=== PATIENT | female | born 1935 | race Caucasian/White ===

== ENCOUNTER 2016-09-13 18:34 | Inpatient (IN) | payer OTHER, MEDICAID ==
[~2016-09-13] VITALS: Ht 162.6 cm; Wt 60.4 kg
[~2016-09-13 18:34] MED LIST: ALEN10TA22 PO; ALL300T PO; ASPI81TA13 PO; BACL10TA PO; FURO20TA PO; GABA-494 PO; HYDRTAB57 PO; LEVO50TA7 PO; LOP2C PO; LOSA25TA9 PO
[2016-09-13 19:13] LABS: Basophils # (auto) 0 uL; Basophils % (auto) 0.3 % (0.0-2.0); DEFINITIVE VIEW TRANSMISSION; Eosinophils # (auto) 0.1 uL; Eosinophils % (auto) 0.8 % (0.0-7.0); Hematocrit 34.7 % (36.0-46.0); Hemoglobin 10.8 g/dL (12.2-16.2); Lymphocytes % (auto) 9.3 % (10.0-50.0); Mean Corpuscular Hemoglobin 24.6 pg (28.0-32.0); Mean Corpuscular Volume 79.4 fL (80.0-100.0); Mean Platelet Volume 6.9 fL (7.4-10.4); Monocytes # (auto) 0.5 uL; Neutrophils # (auto) 8.9 uL; Neutrophils % (auto) 84.6 % (37.0-80.0); Platelet Count (auto) 436 10^3/uL (140-450); Red Cell Distribution Width 17.4 % (11.6-16.0); White Blood Cell 10.5 10^3/uL (4.4-10.8)
[2016-09-13 19:29] LABS: Albumin 2.7 g/dL (3.4-5.0); BUN/Creatinine Ratio 33.3; Calcium 8.2 mg/dL (8.5-10.1); Potassium 4.6 mmol/L (3.5-5.1)
[2016-09-13 19:32] LABS: Bilirubin, Total 0.3 mg/dL (0.2-1.0); Total Protein 6.2 g/dL (6.4-8.2)
[2016-09-13] MEDS ORDERED: ONDANSETRON HCL 4 MG/2 ML VIAL IV ONE (21:15)
[2016-09-13] MEDS ORDERED: HYDROmorphone HCL 2 MG/ML VL IV ONE (21:15)
[2016-09-13] MEDS ORDERED: SODIUM CHLORIDE 0.9% 1,000 ML IV ONE (21:15)
[2016-09-14] MEDS ORDERED: ONDANSETRON HCL 4 MG/2 ML VIAL ONE (00:07)
[2016-09-14] MEDS ORDERED: ONDANSETRON HCL 4 MG/2 ML VIAL IV ONE (00:15)
[2016-09-14] MEDS ORDERED: HYDROmorphone HCL 2 MG/ML VL IV ONE (00:30)
[2016-09-14] MEDS ORDERED: LACTULOSE 20Gm/30ML SOLN PO PRN (01:15)
[2016-09-14] MEDS ORDERED: SODIUM CHLORIDE 0.9% 1,000 ML IV ONE (01:15)
[2016-09-14] MEDS ORDERED: cefTRIAXone 1GM/50ML D5W 50 ML IV ONE (01:15)
[2016-09-14 01:53] LABS: INR 1.02 (0.9-1.15); Partial Thromboplastin Time 25.9 sec (22.64-33.71); Prothrombin Time 10.5 sec (9.37-12.3)
[2016-09-14 02:30] VITALS: BP 108/59
[2016-09-14] MEDS: ONDANSETRON HCL 4 MG/2 ML VIAL IV PRN ×4 (03:55→16:31)
[2016-09-14] MEDS: HYDROmorphone HCL 2 MG/ML VL IV PRN ×5 (03:56→20:58)
[2016-09-14 05:00] VITALS: BP 96/41
[2016-09-14] MEDS ORDERED: INFLUENZA QUAD 2016-2017 0.5 ML SYRG IM ONE (06:00)
[2016-09-14] MEDS: LEVOTHYROXINE SODIUM 25 MCG TAB PO SCH (06:30)
[2016-09-14] MEDS: cefTRIAXone 1GM/50ML D5W 50 ML IV SCH (08:28)
[2016-09-14 09:00] VITALS: BP 117/58
[2016-09-14] MEDS: LOSARTAN POTASSIUM 25 MG TAB PO SCH (10:00)
[2016-09-14] MEDS: PANTOPRAZOLE SODIUM 40 MG/10 ML VIAL IV SCH (11:07)
[2016-09-14] MEDS: GABAPENTIN 100 MG CAP PO SCH (11:07)
[2016-09-14] MEDS: ALLOPURINOL 300 MG TAB PO SCH (11:07)
[2016-09-14 12:32] VITALS: BP 110/47
[2016-09-14 14:41] LABS: Urine Bilirubin Negative (Negative); Urine Blood Negative /uL (Negative); Urine Color Yellow (Yellow); Urine Glucose Normal (Normal); Urine Ketone Negative (Negative); Urine Mucus FEW (None Seen); Urine RBC 2 /hpf (0 - 4); Urine Squamous Epithelial Cell MOD /hpf (<5); Urine Urobilinogen Normal (Negative)
[2016-09-14 14:44] LABS: Urine Nitrite POSITIVE (Negative)
[2016-09-14 16:39] VITALS: BP 96/40
[2016-09-14] MEDS: D5W/SOD CHLO 0.9% 1,000 ML IV SCH (16:40)
[2016-09-14 17:35] LABS: Basophils # (auto) 0 uL; Basophils % (auto) 0.5 % (0.0-2.0); DEFINITIVE VIEW TRANSMISSION; Eosinophils # (auto) 0.2 uL; Eosinophils % (auto) 2.1 % (0.0-7.0); Hematocrit 32.7 % (36.0-46.0); Lymphocytes % (auto) 11.9 % (10.0-50.0); Mean Corpuscular Hemoglobin 24.8 pg (28.0-32.0); Mean Corpuscular Hgb Conc. 30.7 g/dL (32.0-36.0); Mean Corpuscular Volume 80.9 fL (80.0-100.0); Mean Platelet Volume 6.7 fL (7.4-10.4); Monocytes # (auto) 1.2 uL; Monocytes % (auto) 14.6 % (0.0-12.0); Neutrophils % (auto) 70.9 % (37.0-80.0); Platelet Count (auto) 403 10^3/uL (140-450); Red Cell Distribution Width 17.6 % (11.6-16.0); White Blood Cell 8.5 10^3/uL (4.4-10.8)
[2016-09-14 18:04] LABS: BUN/Creatinine Ratio 37.6; Calcium 7.5 mg/dL (8.5-10.1); Potassium 5.1 mmol/L (3.5-5.1)
[2016-09-14] MEDS: AMIODARONE HCL 900 MG in DEXTROSE 500 ML IV SCH (18:55)
[2016-09-14 20:00] VITALS: BP 100/47
[2016-09-14] MEDS: ENOXAPARIN SOD 100 MG/1 ML SYRINGE SC SCH (21:00)
[2016-09-15] VITALS (7 sets, daily range): BP systolic 91–116; BP diastolic 41–59
[2016-09-15] MEDS ORDERED: LIDOCAINE 1% HCL (LOCAL ANESTH.) INJ 20ML MDV ID ONE
[2016-09-15] MEDS: D5W/SOD CHLO 0.9% 1,000 ML IV SCH ×3 (01:03→22:18)
[2016-09-15] MEDS: ONDANSETRON HCL 4 MG/2 ML VIAL IV PRN ×3 (01:19→20:20)
[2016-09-15] MEDS: HYDROmorphone HCL 2 MG/ML VL IV PRN ×5 (01:21→20:20)
[2016-09-15] MEDS: metroNIDAZOLE 500MG/100ML 100 ML IV SCH ×4 (01:30→17:46)
[2016-09-15] MEDS ORDERED: MAGNESIUM SULFATE 1GM/100ML 200 ML IV ONE (03:45)
[2016-09-15] MEDS: MAGNESIUM SULFATE 1GM/100ML 100 ML IV SCH (04:00)
[2016-09-15 05:14] LABS: Basophils # (auto) 0 uL; Basophils % (auto) 0.2 % (0.0-2.0); DEFINITIVE VIEW TRANSMISSION; Eosinophils # (auto) 0.3 uL; Eosinophils % (auto) 3.4 % (0.0-7.0); Hematocrit 26.7 % (36.0-46.0); Hemoglobin 8.5 g/dL (12.2-16.2); Lymphocytes # (auto) 1.1 uL; Lymphocytes % (auto) 11.3 % (10.0-50.0); Mean Corpuscular Hemoglobin 25.1 pg (28.0-32.0); Mean Corpuscular Hgb Conc. 31.7 g/dL (32.0-36.0); Mean Corpuscular Volume 79.1 fL (80.0-100.0); Mean Platelet Volume 7.2 fL (7.4-10.4); Monocytes # (auto) 1.5 uL; Monocytes % (auto) 15.1 % (0.0-12.0); Neutrophils # (auto) 6.9 uL; Platelet Count (auto) 372 10^3/uL (140-450); White Blood Cell 9.9 10^3/uL (4.4-10.8)
[2016-09-15 05:32] LABS: Albumin 1.9 g/dL (3.4-5.0); BUN/Creatinine Ratio 40.4; Bilirubin, Total 0.2 mg/dL (0.2-1.0); Calcium 7.2 mg/dL (8.5-10.1); Potassium 4.7 mmol/L (3.5-5.1); Total Protein 4.8 g/dL (6.4-8.2)
[2016-09-15] MEDS: LEVOTHYROXINE SODIUM 25 MCG TAB PO SCH (07:27)
[2016-09-15] MEDS: AMIODARONE HCL 900 MG in DEXTROSE 500 ML IV SCH (09:10)
[2016-09-15] MEDS: ENOXAPARIN SOD 100 MG/1 ML SYRINGE SC SCH (09:10)
[2016-09-15] MEDS: cefTRIAXone 1GM/50ML D5W 50 ML IV SCH (09:10)
[2016-09-15] MEDS: SODIUM CHLOR 0.9% PF (SALINE LOCK) 10ML VIAL IV SCH ×2 (09:37→22:18)
[2016-09-15] MEDS: LOSARTAN POTASSIUM 25 MG TAB PO SCH (09:37)
[2016-09-15] MEDS: ALLOPURINOL 300 MG TAB PO SCH (09:50)
[2016-09-15] MEDS: GABAPENTIN 100 MG CAP PO SCH ×2 (09:50→22:18)
[2016-09-15] MEDS: PANTOPRAZOLE SODIUM 40 MG/10 ML VIAL IV SCH (09:50)
[2016-09-15] MEDS: AMIODARONE HCL 200 MG TAB PO SCH ×2 (13:59→22:16)
[2016-09-15] MEDS: ALPRAZolam 0.25 MG TAB PO SCH ×2 (13:59→22:16)
[2016-09-15] MEDS ORDERED: WARFARIN SODIUM 5 MG TAB PO ONE (17:00)
[2016-09-15] MEDS ORDERED: ENOXAPARIN SOD 100 MG/1 ML SYRINGE SC SCH (18:00)
[2016-09-15] MEDS: ENOXAPARIN SOD 40 MG/0.4 ML SYRINGE SC SCH (18:28)
[2016-09-15] MEDS: MUPIROCIN 2% OINT 22GM TOP SCH (22:17)
[2016-09-16] VITALS (18 sets, daily range): BP systolic 92–119; BP diastolic 40–56
[2016-09-16] MEDS: metroNIDAZOLE 500MG/100ML 100 ML IV SCH ×3 (02:44→17:27)
[2016-09-16] MEDS: HYDROmorphone HCL 2 MG/ML VL IV PRN ×3 (06:38→22:37)
[2016-09-16] MEDS: ALPRAZolam 0.25 MG TAB PO SCH ×3 (06:38→22:38)
[2016-09-16] MEDS: LEVOTHYROXINE SODIUM 25 MCG TAB PO SCH (06:38)
[2016-09-16] MEDS: ENOXAPARIN SOD 40 MG/0.4 ML SYRINGE SC SCH ×2 (06:39→17:30)
[2016-09-16] MEDS: ONDANSETRON HCL 4 MG/2 ML VIAL IV PRN ×2 (06:57→22:37)
[2016-09-16 07:29] LABS: Basophils # (auto) 0 uL; Basophils % (auto) 0.1 % (0.0-2.0); DEFINITIVE VIEW TRANSMISSION; Eosinophils # (auto) 0.3 uL; Hematocrit 31.3 % (36.0-46.0); Hemoglobin 9.9 g/dL (12.2-16.2); Mean Corpuscular Hemoglobin 25.8 pg (28.0-32.0); Mean Corpuscular Hgb Conc. 31.7 g/dL (32.0-36.0); Mean Corpuscular Volume 81.4 fL (80.0-100.0); Monocytes # (auto) 0.9 uL; Monocytes % (auto) 8.8 % (0.0-12.0); Neutrophils # (auto) 8.5 uL; Neutrophils % (auto) 79.1 % (37.0-80.0); Platelet Count (auto) 285 10^3/uL (140-450); Red Cell Distribution Width 17.9 % (11.6-16.0); White Blood Cell 10.8 10^3/uL (4.4-10.8)
[2016-09-16 07:45] LABS: Partial Thromboplastin Time 30.3 sec (22.64-33.71); Prothrombin Time 12.2 sec (9.37-12.3)
[2016-09-16] MEDS: D5W/SOD CHLO 0.9% 1,000 ML IV SCH (07:45)
[2016-09-16 07:48] LABS: INR 1.18 (0.9-1.15)
[2016-09-16 08:07] LABS: Albumin 1.8 g/dL (3.4-5.0); BUN/Creatinine Ratio 40.3; Bilirubin, Total 0.2 mg/dL (0.2-1.0); Calcium 7.1 mg/dL (8.5-10.1); Potassium 3.9 mmol/L (3.5-5.1); Total Protein 4.5 g/dL (6.4-8.2)
[2016-09-16] MEDS: cefTRIAXone 1GM/50ML D5W 50 ML IV SCH (09:10)
[2016-09-16] MEDS: MUPIROCIN 2% OINT 22GM TOP SCH ×2 (10:52→22:38)
[2016-09-16] MEDS: SODIUM CHLOR 0.9% PF (SALINE LOCK) 10ML VIAL IV SCH ×2 (10:52→22:37)
[2016-09-16] MEDS: PANTOPRAZOLE SODIUM 40 MG/10 ML VIAL IV SCH (10:52)
[2016-09-16] MEDS: AMIODARONE HCL 200 MG TAB PO SCH ×2 (10:52→22:38)
[2016-09-16] MEDS: ALLOPURINOL 300 MG TAB PO SCH (10:53)
[2016-09-16] MEDS: GABAPENTIN 100 MG CAP PO SCH ×2 (10:53→22:38)
[2016-09-16] MEDS ORDERED: WARFARIN SODIUM 5 MG TAB PO ONE (17:00)
[2016-09-17] VITALS: BP 120/52
[2016-09-17] MEDS: metroNIDAZOLE 500MG/100ML 100 ML IV SCH ×2 (01:12→10:20)
[2016-09-17] MEDS: HYDROmorphone HCL 2 MG/ML VL IV PRN ×3 (01:17→10:36)
[2016-09-17] MEDS: ONDANSETRON HCL 4 MG/2 ML VIAL IV PRN ×2 (01:18→18:37)
[2016-09-17 05:00] VITALS: BP 118/56
[2016-09-17] MEDS: ENOXAPARIN SOD 40 MG/0.4 ML SYRINGE SC SCH (05:33)
[2016-09-17] MEDS: ALPRAZolam 0.25 MG TAB PO SCH ×3 (05:34→21:43)
[2016-09-17] MEDS: LEVOTHYROXINE SODIUM 25 MCG TAB PO SCH (05:34)
[2016-09-17 06:00] VITALS: BP 116/55
[2016-09-17 06:35] LABS: Partial Thromboplastin Time 35.2 sec (22.64-33.71)
[2016-09-17 06:43] LABS: INR 1.63 (0.9-1.15); Prothrombin Time 16.8 sec (9.37-12.3)
[2016-09-17] MEDS: cefTRIAXone 1GM/50ML D5W 50 ML IV SCH (09:13)
[2016-09-17] MEDS: PANTOPRAZOLE SODIUM 40 MG/10 ML VIAL IV SCH (10:18)
[2016-09-17] MEDS: GABAPENTIN 100 MG CAP PO SCH ×2 (10:18→21:43)
[2016-09-17] MEDS: AMIODARONE HCL 200 MG TAB PO SCH (10:19)
[2016-09-17] MEDS: ALLOPURINOL 300 MG TAB PO SCH (10:19)
[2016-09-17] MEDS: SODIUM CHLOR 0.9% PF (SALINE LOCK) 10ML VIAL IV SCH ×2 (10:20→21:43)
[2016-09-17] MEDS: MUPIROCIN 2% OINT 22GM TOP SCH ×2 (10:29→21:43)
[2016-09-17] MEDS ORDERED: HYDROcodone-ACET 5/325MG TAB PO PRN (10:45)
[2016-09-17 13:00] VITALS: BP 117/43
[2016-09-17] MEDS: HYDROcodone-ACET 10/325MG TAB PO PRN ×2 (16:22→21:43)
[2016-09-17 16:59] VITALS: BP 126/54
[2016-09-17] MEDS ORDERED: WARFARIN SODIUM 5 MG TAB PO ONE (17:00)
[2016-09-17 22:00] VITALS: BP 116/51
[2016-09-18] MEDS: HYDROcodone-ACET 10/325MG TAB PO PRN ×3 (04:57→17:43)
[2016-09-18] MEDS: ALPRAZolam 0.25 MG TAB PO SCH ×2 (04:57→14:14)
[2016-09-18 05:00] VITALS: BP 123/59
[2016-09-18 06:00] LABS: Partial Thromboplastin Time 35.6 sec (22.64-33.71)
[2016-09-18] MEDS: LEVOTHYROXINE SODIUM 25 MCG TAB PO SCH (06:13)
[2016-09-18 06:14] LABS: INR 2.97 (0.9-1.15); Prothrombin Time 30.6 sec (9.37-12.3)
[2016-09-18 09:00] VITALS: BP 123/65
[2016-09-18] MEDS ORDERED: AMIODARONE HCL 200 MG TAB PO SCH (10:00)
[2016-09-18] MEDS: GABAPENTIN 100 MG CAP PO SCH (10:55)
[2016-09-18] MEDS: SODIUM CHLOR 0.9% PF (SALINE LOCK) 10ML VIAL IV SCH (10:55)
[2016-09-18] MEDS: ALLOPURINOL 300 MG TAB PO SCH (10:55)
[2016-09-18] MEDS: PANTOPRAZOLE SODIUM 40 MG/10 ML VIAL IV SCH (10:55)
[2016-09-18] MEDS: MUPIROCIN 2% OINT 22GM TOP SCH (10:56)
[2016-09-18 13:00] VITALS: BP 126/60
[2016-09-18] MEDS ORDERED: MUPI2OIN10 TOP (14:38)
[2016-09-18] MEDS ORDERED: AMI200T PO (14:38)
[2016-09-18] MEDS ORDERED: WARPRX PO (14:38)
[2016-09-18 17:15] VITALS: BP 138/66
[2016-09-18] MEDS ORDERED: PRO-STAT 64 30ML PO SCH (18:00)
[2016-09-18 18:28] VITALS: BP 138/66
== END 2016-09-18 19:37 | disposition home or self-care (01) | DRG 393 ==
LOC: EDUNIT# 18:34 → ER 18:36 → TELE-WESTW 18:37 → DOU IN ICU 09-14 18:50 → TELE-EAST 09-17 01:43
PROVIDERS: ADMIT Family Medicine; ATTEND Hospitalist
PROC: 02HV33Z Insertion of Infusion Device into Superior Vena Cava, Percutaneous Approach (ICD-10-PCS; principal; 2016-09-15)
DX: K55.9 Vascular disorder of intestine, unspecified (principal); E43 Unspecified severe protein-calorie malnutrition; I45.89 Other specified conduction disorders; I47.1 Supraventricular tachycardia; I48.92 Unspecified atrial flutter; J44.9 Chronic obstructive pulmonary disease, unspecified; K21.9 Gastro-esophageal reflux disease without esophagitis; F41.9 Anxiety disorder, unspecified; M19.90 Unspecified osteoarthritis, unspecified site; J45.909 Unspecified asthma, uncomplicated; M10.9 Gout, unspecified; I12.9 Hypertensive chronic kidney disease with stage 1 through stage 4 chronic kidney disease, or unspecified chronic kidney disease; N18.9 Chronic kidney disease, unspecified; E78.5 Hyperlipidemia, unspecified; E03.9 Hypothyroidism, unspecified; E86.0 Dehydration; I34.0 Nonrheumatic mitral (valve) insufficiency; I48.0 Paroxysmal atrial fibrillation; K57.30 Diverticulosis of large intestine without perforation or abscess without bleeding; K66.8 Other specified disorders of peritoneum; N20.0 Calculus of kidney; Z66 Do not resuscitate; Z96.642 Presence of left artificial hip joint; D63.8 Anemia in other chronic diseases classified elsewhere; Z90.49 Acquired absence of other specified parts of digestive tract; Z90.710 Acquired absence of both cervix and uterus; Z93.3 Colostomy status; Z82.0 Family history of epilepsy and other diseases of the nervous system; Z91.018 Allergy to other foods; Z79.899 Other long term (current) drug therapy; Z80.9 Family history of malignant neoplasm, unspecified; Z82.49 Family history of ischemic heart disease and other diseases of the circulatory system; Z68.22 Body mass index [BMI] 22.0-22.9, adult
CPT/HCPCS: 36415; 36569; 71010; 74176; 80048; 80053; 81001; 83605; 83690; 83735; 84484; 85025; 85610; 85730; 86850; 86900; 86901; 86920; 87040; 87081; 93005; 96361; 96365; 96366; 96375; 96376; C9113; J0696; J2405; J3490; J7042

== ENCOUNTER 2016-11-02 22:22 | Inpatient (IN) | payer OTHER, MEDICAID ==
[~2016-11-02] VITALS: Ht 165.1 cm; Wt 60.1 kg
[~2016-11-02 22:22] MED LIST changes: +AMI200T PO; -ASPI81TA13 PO; -BACL10TA PO; -FURO20TA PO; -LOSA25TA9 PO; +MUPI2OIN10 TOP; +WARPRX PO
[2016-11-02 23:37] LABS: Basophils # (auto) 0 uL; Basophils % (auto) 0.3 % (0.0-2.0); DEFINITIVE VIEW TRANSMISSION; Eosinophils # (auto) 0.1 uL; Eosinophils % (auto) 0.8 % (0.0-7.0); Hematocrit 26.4 % (36.0-46.0); Hemoglobin 8.7 g/dL (12.2-16.2); Lymphocytes # (auto) 0.7 uL; Lymphocytes % (auto) 8.1 % (10.0-50.0); Mean Corpuscular Hemoglobin 27.5 pg (28.0-32.0); Mean Corpuscular Volume 83.4 fL (80.0-100.0); Mean Platelet Volume 6.5 fL (7.4-10.4); Monocytes # (auto) 0.8 uL; Monocytes % (auto) 9.4 % (0.0-12.0); Neutrophils # (auto) 6.7 uL; Neutrophils % (auto) 81.4 % (37.0-80.0); Platelet Count (auto) 323 10^3/uL (140-450); White Blood Cell 8.2 10^3/uL (4.4-10.8)
[2016-11-02 23:51] LABS: Partial Thromboplastin Time 52.3 sec (22.64-33.71)
[2016-11-02 23:57] LABS: Albumin 2.3 g/dL (3.4-5.0); Anion Gap 9 (5-15); Aspartate Aminotransferase 32 U/L (15-37); BUN/Creatinine Ratio 46.9; Blood Urea Nitrogen 60 mg/dL (7-18); Calcium 7.6 mg/dL (8.5-10.1); Carbon Dioxide 23 mmol/L (21-32); Chloride 105 mmol/L (98-107); GFR African American 51 mL/min; GFR Non-African American 42 mL/min; Glucose 146 mg/dL (74-106); Magnesium 1.7 mg/dL (1.6-2.6); Potassium 3.9 mmol/L (3.5-5.1); Sodium 137 mmol/L (136-145)
[2016-11-03] LABS: Red Cell Distribution Width 20.6 % (11.6-16.0)
[2016-11-03 00:01] LABS: INR 2.4 (0.9-1.15); Prothrombin Time 24.7 sec (9.37-12.3)
[2016-11-03 00:02] LABS: Alkaline Phosphatase 78 U/L (45-117); Bilirubin, Total 0.5 mg/dL (0.2-1.0); Total Protein 5.4 g/dL (6.4-8.2)
[2016-11-03 00:27] LABS: Anisocytosis Moderate; Microcytosis Slight; Ovalocytes FEW; Platelet Estimate Adequate
[2016-11-03 02:35] LABS: Urine RBC None Seen /hpf (0 - 4)
[2016-11-03 03:15] LABS: Urine Bilirubin Negative (Negative); Urine Blood Negative /uL (Negative); Urine Color Yellow (Yellow); Urine Glucose Normal (Normal); Urine Hyaline Cast FEW /lpf (0 - 2); Urine Ketone Negative (Negative); Urine Nitrite Negative (Negative); Urine Squamous Epithelial Cell FEW /hpf (<5); Urine Urobilinogen Normal (Negative)
[2016-11-03] MEDS ORDERED: SODIUM CHLORIDE 0.9% 500 ML IV ONE ×2 (04:00→04:45)
[2016-11-03] MEDS ORDERED: VANCOMYCIN 1GM/250ML D5W 250 ML IV ONE (04:45)
[2016-11-03] MEDS ORDERED: PIPERACILLIN-TAZOB 3.375GM 100 ML IV ONE (04:45)
[2016-11-03] MEDS ORDERED: NITROGLYCERIN 0.4 MG SL TAB SL PRN (07:00)
[2016-11-03] MEDS ORDERED: TEMAZEPAM 15 MG CAP PO PRN (07:00)
[2016-11-03] MEDS ORDERED: MORPHINE SULF INJ 2 MG/ML SYRINGE 1ML IV PRN (07:00)
[2016-11-03] MEDS ORDERED: ALBUTEROL SULF 2.5 MG/0.5ML(0.5%) NEB SOLN NEB PRN (07:00)
[2016-11-03] MEDS ORDERED: LORazepam 0.5 MG TAB PO PRN (07:00)
[2016-11-03] MEDS ORDERED: LACTULOSE 20Gm/30ML SOLN PO PRN (07:00)
[2016-11-03] MEDS: SODIUM CHLORIDE 0.9% 1,000 ML IV SCH ×2 (08:27→21:28)
[2016-11-03] MEDS: HYDROcodone-ACET 5/325MG TAB PO PRN (09:02)
[2016-11-03] MEDS ORDERED: PANTOPRAZOLE SODIUM 40 MG/10 ML VIAL IV ONE ×2 (09:45→09:49)
[2016-11-03] MEDS ORDERED: ENOXAPARIN SOD 40 MG/0.4 ML SYRINGE SC SCH (10:00)
[2016-11-03] MEDS ORDERED: PHYTONADIONE ORAL Susp 10 mg/10ml PO ONE (10:00)
[2016-11-03] MEDS ORDERED: ASPirin 81 mg TAB PO SCH (10:00)
[2016-11-03] MEDS: ALLOPURINOL 300 MG TAB PO SCH ×2 (10:15→21:28)
[2016-11-03] MEDS: GABAPENTIN 100 MG CAP PO SCH (10:15)
[2016-11-03] MEDS: LEVOTHYROXINE SODIUM 50 MCG TAB PO SCH (10:15)
[2016-11-03] MEDS: PANTOPRAZOLE SODIUM 40 MG/10 ML VIAL IV SCH (10:15)
[2016-11-03] MEDS: AMIODARONE HCL 200 MG TAB PO SCH (10:15)
[2016-11-03 10:42] LABS: Temperature: 22.1 C (20.0-25.0)
[2016-11-03] MEDS: ALBUTEROL SULF 2.5 MG/0.5ML(0.5%) NEB SOLN NEB SCH ×2 (12:00→19:13)
[2016-11-03 12:38] LABS: Hematocrit 25.6 % (36.0-46.0); Hemoglobin 8.4 g/dL (12.2-16.2)
[2016-11-03 14:12] VITALS: BP 109/47
[2016-11-03] MEDS: MORPHINE SULF INJ 2 MG/ML SYRINGE 1ML IV PRN ×2 (15:24→21:27)
[2016-11-03 16:51] VITALS: BP 105/43
[2016-11-03] MEDS: ATORVASTATIN 20 MG TAB PO SCH (21:28)
[2016-11-03] MEDS: ACETAMINOPHEN 500 MG TAB PO PRN (22:38)
[2016-11-03 22:44] VITALS: BP 95/37
[2016-11-03 23:33] LABS: Hematocrit 25.2 % (36.0-46.0); Hemoglobin 8.3 g/dL (12.2-16.2)
[2016-11-04] VITALS (32 sets, daily range): BP systolic 67–146; BP diastolic 22–100
[2016-11-04] MEDS: ALBUTEROL SULF 2.5 MG/0.5ML(0.5%) NEB SOLN NEB SCH ×4 (00:42→20:14)
[2016-11-04] MEDS: ACETAMINOPHEN 500 MG TAB PO PRN ×2 (06:31→23:35)
[2016-11-04] MEDS: HYDROcodone-ACET 5/325MG TAB PO PRN ×3 (09:02→21:30)
[2016-11-04 09:52] LABS: Albumin 2.1 g/dL (3.4-5.0); BUN/Creatinine Ratio 31.1; Bilirubin, Total 0.4 mg/dL (0.2-1.0); Calcium 7.4 mg/dL (8.5-10.1); Potassium 4.1 mmol/L (3.5-5.1); Total Protein 5.2 g/dL (6.4-8.2)
[2016-11-04 09:54] LABS: Partial Thromboplastin Time 36.2 sec (22.64-33.71)
[2016-11-04 09:57] LABS: INR 1.22 (0.9-1.15); Prothrombin Time 12.6 sec (9.37-12.3)
[2016-11-04] MEDS: AMIODARONE HCL 200 MG TAB PO SCH (10:26)
[2016-11-04] MEDS: PANTOPRAZOLE SODIUM 40 MG/10 ML VIAL IV SCH (10:26)
[2016-11-04] MEDS: GABAPENTIN 100 MG CAP PO SCH (10:26)
[2016-11-04] MEDS: ALLOPURINOL 300 MG TAB PO SCH ×2 (10:26→21:30)
[2016-11-04] MEDS: LEVOTHYROXINE SODIUM 50 MCG TAB PO SCH (10:26)
[2016-11-04] MEDS: SODIUM CHLORIDE 0.9% 1,000 ML IV SCH ×2 (10:27→15:00)
[2016-11-04 10:53] LABS: Basophils # (auto) 0 uL; Basophils % (auto) 0.1 % (0.0-2.0); DEFINITIVE VIEW TRANSMISSION; Eosinophils # (auto) 0.1 uL; Eosinophils % (auto) 0.6 % (0.0-7.0); Hematocrit 20.2 % (36.0-46.0); Lymphocytes # (auto) 0.6 uL; Lymphocytes % (auto) 6.7 % (10.0-50.0); Mean Corpuscular Hemoglobin 27.9 pg (28.0-32.0); Mean Corpuscular Hgb Conc. 33.1 g/dL (32.0-36.0); Mean Corpuscular Volume 84.3 fL (80.0-100.0); Mean Platelet Volume 6.9 fL (7.4-10.4); Monocytes # (auto) 0.9 uL; Monocytes % (auto) 9.4 % (0.0-12.0); Neutrophils # (auto) 7.7 uL; Neutrophils % (auto) 83.2 % (37.0-80.0); Platelet Count (auto) 285 10^3/uL (140-450); White Blood Cell 9.2 10^3/uL (4.4-10.8)
[2016-11-04 10:59] LABS: Red Cell Distribution Width 20.6 % (11.6-16.0)
[2016-11-04 11:01] LABS: Hemoglobin 6.7 g/dL (12.2-16.2)
[2016-11-04 11:06] LABS: Anisocytosis Slight; Ovalocytes FEW; Platelet Estimate Adequate
[2016-11-04] MEDS: MORPHINE SULF INJ 2 MG/ML SYRINGE 1ML IV PRN ×3 (13:33→22:30)
[2016-11-04 13:34] LABS: Basophils # (auto) 0 uL; Basophils % (auto) 0.2 % (0.0-2.0); DEFINITIVE VIEW TRANSMISSION; Eosinophils # (auto) 0 uL; Eosinophils % (auto) 0.4 % (0.0-7.0); Hematocrit 19.9 % (36.0-46.0); Lymphocytes # (auto) 0.8 uL; Mean Corpuscular Hgb Conc. 33.5 g/dL (32.0-36.0); Mean Corpuscular Volume 83.7 fL (80.0-100.0); Mean Platelet Volume 6.6 fL (7.4-10.4); Monocytes # (auto) 0.8 uL; Neutrophils # (auto) 9.6 uL; Neutrophils % (auto) 85.4 % (37.0-80.0); Platelet Count (auto) 281 10^3/uL (140-450); White Blood Cell 11.2 10^3/uL (4.4-10.8)
[2016-11-04 13:35] LABS: Red Cell Distribution Width 20.2 % (11.6-16.0)
[2016-11-04 13:37] LABS: Hemoglobin 6.7 g/dL (12.2-16.2)
[2016-11-04] MEDS ORDERED: PHYTONADIONE ORAL Susp 10 mg/10ml PO ONE (14:45)
[2016-11-04 15:12] LABS: Anisocytosis Slight; Ovalocytes FEW; Platelet Estimate Adequate
[2016-11-04] MEDS ORDERED: SODIUM CHLORIDE 0.9% 1,000 ML IV ONE (15:30)
[2016-11-04] MEDS ORDERED: VANCOMYCIN 1GM/250ML D5W 250 ML IV ONE (15:45)
[2016-11-04] MEDS: ALPRAZolam 0.25 MG TAB PO PRN (16:44)
[2016-11-04] MEDS: cefTRIAXone 1GM/50ML D5W 50 ML IV SCH (17:50)
[2016-11-04] MEDS ORDERED: BOOST PLUS 8 ounce PO SCH (18:00)
[2016-11-04 18:55] LABS: Basophils # (auto) 0 uL; Basophils % (auto) 0.1 % (0.0-2.0); DEFINITIVE VIEW TRANSMISSION; Eosinophils # (auto) 0.1 uL; Eosinophils % (auto) 0.6 % (0.0-7.0); Hematocrit 25.8 % (36.0-46.0); Hemoglobin 8.6 g/dL (12.2-16.2); Lymphocytes % (auto) 10.6 % (10.0-50.0); Mean Corpuscular Hemoglobin 28.6 pg (28.0-32.0); Mean Corpuscular Hgb Conc. 33.5 g/dL (32.0-36.0); Mean Corpuscular Volume 85.6 fL (80.0-100.0); Monocytes # (auto) 0.8 uL; Monocytes % (auto) 8.5 % (0.0-12.0); Neutrophils # (auto) 7.9 uL; Neutrophils % (auto) 80.2 % (37.0-80.0); Platelet Count (auto) 156 10^3/uL (140-450); Red Cell Distribution Width 19.4 % (11.6-16.0); SUSPECT VIEW TRANSMISSION; White Blood Cell 9.9 10^3/uL (4.4-10.8)
[2016-11-04 20:05] LABS: Anisocytosis Moderate; Hypochromia Slight; Platelet Estimate Adequate
[2016-11-04 20:06] LABS: Platelet Clumps OCCL.
[2016-11-04] MEDS: ATORVASTATIN 20 MG TAB PO SCH (21:30)
[2016-11-04] MEDS: ONDANSETRON HCL 4 MG/2 ML VIAL IV PRN (22:30)
[2016-11-05] VITALS (74 sets, daily range): BP systolic 87–142; BP diastolic 34–87
[2016-11-05] MEDS: SODIUM CHLORIDE 0.9% 1,000 ML IV SCH ×3 (01:00→14:30)
[2016-11-05] MEDS: ALBUTEROL SULF 2.5 MG/0.5ML(0.5%) NEB SOLN NEB SCH ×5 (01:09→18:33)
[2016-11-05] MEDS: MORPHINE SULF INJ 2 MG/ML SYRINGE 1ML IV PRN ×2 (02:24→21:07)
[2016-11-05] MEDS: ALPRAZolam 0.25 MG TAB PO PRN ×2 (03:59→21:13)
[2016-11-05 04:18] LABS: Basophils # (auto) 0 uL; Basophils % (auto) 0.1 % (0.0-2.0); DEFINITIVE VIEW TRANSMISSION; Eosinophils # (auto) 0.1 uL; Eosinophils % (auto) 1.1 % (0.0-7.0); Hematocrit 23.3 % (36.0-46.0); Hemoglobin 7.8 g/dL (12.2-16.2); Lymphocytes # (auto) 0.8 uL; Lymphocytes % (auto) 7.7 % (10.0-50.0); Mean Corpuscular Hemoglobin 28.5 pg (28.0-32.0); Mean Corpuscular Hgb Conc. 33.5 g/dL (32.0-36.0); Mean Corpuscular Volume 85.3 fL (80.0-100.0); Mean Platelet Volume 6.7 fL (7.4-10.4); Monocytes # (auto) 0.7 uL; Monocytes % (auto) 7.1 % (0.0-12.0); Neutrophils # (auto) 8.3 uL; Platelet Count (auto) 252 10^3/uL (140-450); Red Cell Distribution Width 18.6 % (11.6-16.0); White Blood Cell 9.9 10^3/uL (4.4-10.8)
[2016-11-05 04:26] LABS: Partial Thromboplastin Time 35.2 sec (22.64-33.71)
[2016-11-05 04:27] LABS: BUN/Creatinine Ratio 28.7; Calcium 7.2 mg/dL (8.5-10.1); Magnesium 1.6 mg/dL (1.6-2.6); Potassium 4.1 mmol/L (3.5-5.1)
[2016-11-05 04:39] LABS: INR 1.17 (0.9-1.15)
[2016-11-05] MEDS: cefTRIAXone 1GM/50ML D5W 50 ML IV SCH (09:41)
[2016-11-05] MEDS: ALLOPURINOL 300 MG TAB PO SCH (09:41)
[2016-11-05] MEDS: AMIODARONE HCL 200 MG TAB PO SCH (09:41)
[2016-11-05] MEDS: GABAPENTIN 100 MG CAP PO SCH (09:41)
[2016-11-05] MEDS: LEVOTHYROXINE SODIUM 50 MCG TAB PO SCH (09:41)
[2016-11-05] MEDS: PANTOPRAZOLE SODIUM 40 MG/10 ML VIAL IV SCH (09:42)
[2016-11-05] MEDS: ONDANSETRON HCL 4 MG/2 ML VIAL IV PRN ×2 (10:24→23:03)
[2016-11-05 11:32] LABS: Urine Bilirubin Negative (Negative); Urine Blood TRACE /uL (Negative); Urine Color Yellow (Yellow); Urine Glucose Normal (Normal); Urine Ketone Negative (Negative); Urine Nitrite Negative (Negative); Urine RBC <1 /hpf (0 - 4); Urine Squamous Epithelial Cell FEW /hpf (<5); Urine Urobilinogen Normal (Negative); Urine pH 5.5 (5.0-8.0)
[2016-11-05] MEDS: ACETAMINOPHEN 500 MG TAB PO PRN ×2 (11:39→23:04)
[2016-11-05] MEDS ORDERED: PROMETHAZINE HCL 25 MG/ML 1ML IV PRN (13:00)
[2016-11-05] MEDS ORDERED: PHYTONADIONE ORAL Susp 10 mg/10ml PO ONE (13:15)
[2016-11-05 15:09] LABS: Basophils # (auto) 0 uL; Basophils % (auto) 0.2 % (0.0-2.0); Eosinophils # (auto) 0.1 uL; Eosinophils % (auto) 0.8 % (0.0-7.0); Hematocrit 34.6 % (36.0-46.0); Hemoglobin 11.6 g/dL (12.2-16.2); Lymphocytes # (auto) 0.6 uL; Lymphocytes % (auto) 6.3 % (10.0-50.0); Mean Corpuscular Hgb Conc. 33.4 g/dL (32.0-36.0); Mean Corpuscular Volume 86.8 fL (80.0-100.0); Mean Platelet Volume 6.8 fL (7.4-10.4); Monocytes # (auto) 0.6 uL; Neutrophils # (auto) 8.8 uL; Neutrophils % (auto) 86.7 % (37.0-80.0); Platelet Count (auto) 261 10^3/uL (140-450); Red Cell Distribution Width 17.1 % (11.6-16.0); White Blood Cell 10.1 10^3/uL (4.4-10.8)
[2016-11-05] MEDS: PRO-STAT 64 30ML PO SCH (18:00)
[2016-11-05 18:26] LABS: Basophils # (auto) 0 uL; Basophils % (auto) 0.4 % (0.0-2.0); Eosinophils # (auto) 0.1 uL; Eosinophils % (auto) 1.1 % (0.0-7.0); Hematocrit 33.9 % (36.0-46.0); Hemoglobin 11.4 g/dL (12.2-16.2); Lymphocytes # (auto) 0.8 uL; Lymphocytes % (auto) 8.1 % (10.0-50.0); Mean Corpuscular Hemoglobin 29.4 pg (28.0-32.0); Mean Corpuscular Hgb Conc. 33.5 g/dL (32.0-36.0); Mean Corpuscular Volume 87.6 fL (80.0-100.0); Mean Platelet Volume 6.8 fL (7.4-10.4); Monocytes # (auto) 0.6 uL; Monocytes % (auto) 6.4 % (0.0-12.0); Neutrophils # (auto) 8.1 uL; Platelet Count (auto) 242 10^3/uL (140-450); Red Cell Distribution Width 17.6 % (11.6-16.0); White Blood Cell 9.6 10^3/uL (4.4-10.8)
[2016-11-05] MEDS: ATORVASTATIN 20 MG TAB PO SCH (21:08)
[2016-11-06] VITALS (7 sets, daily range): BP systolic 95–131; BP diastolic 42–62
[2016-11-06] MEDS: SODIUM CHLORIDE 0.9% 1,000 ML IV SCH ×2 (00:09→17:00)
[2016-11-06 06:18] LABS: INR 1.11 (0.9-1.15); Partial Thromboplastin Time 26.8 sec (22.64-33.71); Prothrombin Time 11.4 sec (9.37-12.3)
[2016-11-06 06:20] LABS: Basophils # (auto) 0 uL; Basophils % (auto) 0.2 % (0.0-2.0); Eosinophils # (auto) 0.1 uL; Eosinophils % (auto) 0.9 % (0.0-7.0); Hematocrit 30.3 % (36.0-46.0); Hemoglobin 9.9 g/dL (12.2-16.2); Lymphocytes # (auto) 0.9 uL; Lymphocytes % (auto) 8.5 % (10.0-50.0); Mean Corpuscular Hemoglobin 28.9 pg (28.0-32.0); Mean Corpuscular Hgb Conc. 32.9 g/dL (32.0-36.0); Monocytes # (auto) 0.8 uL; Monocytes % (auto) 7.4 % (0.0-12.0); Platelet Count (auto) 253 10^3/uL (140-450); Red Cell Distribution Width 17.8 % (11.6-16.0); SUSPECT VIEW TRANSMISSION; White Blood Cell 10.8 10^3/uL (4.4-10.8)
[2016-11-06 06:39] LABS: Albumin 1.7 g/dL (3.4-5.0); BUN/Creatinine Ratio 25.9; Bilirubin, Total 0.4 mg/dL (0.2-1.0); Calcium 7.4 mg/dL (8.5-10.1); Magnesium 1.7 mg/dL (1.6-2.6); Phosphorus 3.1 mg/dL (2.5-4.90); Potassium 4.6 mmol/L (3.5-5.1); Uric Acid 2.5 mg/dL (2.6-6.0)
[2016-11-06] MEDS: ALBUTEROL SULF 2.5 MG/0.5ML(0.5%) NEB SOLN NEB SCH ×3 (07:14→18:47)
[2016-11-06] MEDS: PRO-STAT 64 30ML PO SCH ×2 (08:00→18:00)
[2016-11-06] MEDS: cefTRIAXone 1GM/50ML D5W 50 ML IV SCH (09:15)
[2016-11-06] MEDS: AMIODARONE HCL 200 MG TAB PO SCH (09:49)
[2016-11-06] MEDS: PANTOPRAZOLE SODIUM 40 MG/10 ML VIAL IV SCH (09:49)
[2016-11-06] MEDS: GABAPENTIN 100 MG CAP PO SCH (09:49)
[2016-11-06] MEDS: LEVOTHYROXINE SODIUM 50 MCG TAB PO SCH (09:49)
[2016-11-06] MEDS: MORPHINE SULF INJ 2 MG/ML SYRINGE 1ML IV PRN ×3 (09:50→20:45)
[2016-11-06] MEDS ORDERED: ALLOPURINOL 300 MG TAB PO SCH (10:00)
[2016-11-06] MEDS ORDERED: BACITRACIN-POLYMYXIN B TOPICAL OINT UD TOP SCH (10:00)
[2016-11-06] MEDS ORDERED: ADENOSINE 50 MG in GIVE UN-DILUTED 0 ML IV ONE (11:30)
[2016-11-06] MEDS: ALPRAZolam 0.25 MG TAB PO PRN (13:10)
[2016-11-06] MEDS: HYDROcodone-ACET 5/325MG TAB PO PRN (13:10)
[2016-11-06 13:38] LABS: Basophils # (auto) 0 uL; Basophils % (auto) 0.3 % (0.0-2.0); Eosinophils # (auto) 0.1 uL; Hematocrit 37.8 % (36.0-46.0); Hemoglobin 12.4 g/dL (12.2-16.2); Lymphocytes # (auto) 0.7 uL; Lymphocytes % (auto) 8.8 % (10.0-50.0); Mean Corpuscular Hemoglobin 29.1 pg (28.0-32.0); Mean Corpuscular Volume 88.4 fL (80.0-100.0); Mean Platelet Volume 6.6 fL (7.4-10.4); Monocytes # (auto) 0.5 uL; Monocytes % (auto) 6.3 % (0.0-12.0); Neutrophils # (auto) 6.3 uL; Neutrophils % (auto) 83.6 % (37.0-80.0); Platelet Count (auto) 271 10^3/uL (140-450); Red Cell Distribution Width 17.5 % (11.6-16.0); White Blood Cell 7.6 10^3/uL (4.4-10.8)
[2016-11-06] MEDS ORDERED: LEVO250T45 PO (13:38)
[2016-11-06] MEDS: ATORVASTATIN 20 MG TAB PO SCH (21:37)
== END 2016-11-06 22:00 | disposition hospice, inpatient (51) | DRG 377 ==
LOC: ER 22:22 → TELE 22:23 → TELE-WESTW 11-03 14:19 → ICU WEST 11-04 18:51 → DOU IN ICU 11-05 22:35
PROVIDERS: ADMIT Internal Medicine; ATTEND Internal Medicine
PROC: 30233L1 Transfusion of Nonautologous Fresh Plasma into Peripheral Vein, Percutaneous Approach (ICD-10-PCS; principal; 2016-11-04)
PROC: 30233N1 Transfusion of Nonautologous Red Blood Cells into Peripheral Vein, Percutaneous Approach (ICD-10-PCS; 2016-11-04)
PROC: 30233K1 Transfusion of Nonautologous Frozen Plasma into Peripheral Vein, Percutaneous Approach (ICD-10-PCS; 2016-11-04)
DX: K92.2 Gastrointestinal hemorrhage, unspecified (principal); N17.0 Acute kidney failure with tubular necrosis; G92 Toxic encephalopathy; K66.1 Hemoperitoneum; I50.32 Chronic diastolic (congestive) heart failure; R64 Cachexia; I13.0 Hypertensive heart and chronic kidney disease with heart failure and stage 1 through stage 4 chronic kidney disease, or unspecified chronic kidney disease; D62 Acute posthemorrhagic anemia; D68.9 Coagulation defect, unspecified; K55.9 Vascular disorder of intestine, unspecified; I48.0 Paroxysmal atrial fibrillation; N18.9 Chronic kidney disease, unspecified; E03.9 Hypothyroidism, unspecified; M10.9 Gout, unspecified; D64.9 Anemia, unspecified; E78.5 Hyperlipidemia, unspecified; J44.9 Chronic obstructive pulmonary disease, unspecified; K21.9 Gastro-esophageal reflux disease without esophagitis; Z66 Do not resuscitate; I70.8 Atherosclerosis of other arteries; J45.909 Unspecified asthma, uncomplicated; Z51.5 Encounter for palliative care; F41.9 Anxiety disorder, unspecified; G62.9 Polyneuropathy, unspecified; M19.90 Unspecified osteoarthritis, unspecified site; T45.515A Adverse effect of anticoagulants, initial encounter; Z90.710 Acquired absence of both cervix and uterus; Z79.899 Other long term (current) drug therapy; Z93.3 Colostomy status; Z79.01 Long term (current) use of anticoagulants; Z82.0 Family history of epilepsy and other diseases of the nervous system; Z82.3 Family history of stroke; Z82.49 Family history of ischemic heart disease and other diseases of the circulatory system; Z90.49 Acquired absence of other specified parts of digestive tract; Z87.442 Personal history of urinary calculi; Z87.891 Personal history of nicotine dependence
CPT/HCPCS: 36415; 51702; 70450; 71010; 74176; 76775; 80048; 80053; 80320; 81001; 82043; 82270; 82378; 82550; 82570; 82607; 82746; 82962; 83605; 83735; 84100; 84300; 84443; 84484; 84550; 85014; 85018; 85025; 85045; 85379; 85610; 85652; 85730; 86141; 86850; 86900; 86901; 86920; 87040; 87081; 87086; 93005; 94640; 96361; 96365; 96366; 96368; C9113; G0434; J0153; J0696; J2405; J2543